=== PATIENT | female | born 1975 | race Caucasian/White ===

== ENCOUNTER 2019-05-26 09:00 | Inpatient (IN) | payer MEDICAID, OTHER ==
[~2019-05-26] VITALS: Ht 160 cm; Wt 79.1 kg
[2019-05-26 10:15] LABS: PH, VENOUS 7.281 pH (7.320-7.420)
[2019-05-26 10:18] LABS: BASOPHILS # (AUTO) 0.06 x10^3/uL (0-0.1); BASOPHILS % (AUTO) 1 % (0-1); EOSINOPHILS # (AUTO) 0.53 x10^3/uL (0-0.4); EOSINOPHILS % (AUTO) 6 % (1-7); LYMPHOCYTES # (AUTO) 1.86 x10^3/uL (1-3.4); LYMPHOCYTES % (AUTO) 19 % (22-44); MD NO; MEAN CORPUSCULAR HGB CONC 32.4 g/dL (32.4-35.8); MEAN CORPUSCULAR VOLUME 86.6 fL (80-100); MEAN PLATELET VOLUME 7.3 fL (7.4-10.4); MONOCYTES # (AUTO) 0.64 x10^3/uL (0.2-0.8); MONOCYTES % (AUTO) 7 % (2-9); NEUTROPHILS # (AUTO) 6.52 x10^3/uL (1.8-6.8); NEUTROPHILS % (AUTO) 68 % (42-75); PLATELET COUNT 431 x10^3/uL (130-400); RED CELL DISTRIBUTION WIDTH 16.5 % (9.6-15.2)
[2019-05-26 10:25] LABS: ALANINE AMINOTRANSFERASE 32 U/L (12-78); ALBUMIN 1.9 g/dL (3.4-5.0); ANION GAP 6 mmol/L (5-15); CALCIUM 8.2 mg/dL (8.5-10.1); CHLORIDE 112 mmol/L (98-107); CREATININE 4.63 mg/dL (0.55-1.02)
[2019-05-26 10:28] LABS: ALKALINE PHOSPHATASE 78 U/L (45-117); BILIRUBIN,TOTAL 0.3 mg/dL (0.2-1.0)
[2019-05-26 10:46] LABS: ACETONE, SERUM Negative (Negative)
--- NOTE | 2019-05-26 10:46 | NUR ---
PT TO RESTROOM WITH SLOW BUT STEADY GAIT.
[2019-05-26] MEDS ORDERED: FUROSEMIDE 40 MG/4 ML IV ONE ×2 (11:00→18:00)
--- NOTE | 2019-05-26 11:26 | NUR ---
TASK RN NOTE: PIV PLACED, PT ON ALL MONITORS. PT A&O, RESPS EVEN AND UNLABORED. PT ABLE TO SPEAK IN FULL SENTENCES WITHOUT DIFFICULTY. CLINICAL SCREEN COMPLETED. VS REASSESSED, REPORT GIVEN TO PRIMARY RN TRISH.
[2019-05-26] MEDS ORDERED: FUROSEMIDE 40 MG/4 ML ONE (11:29)
[2019-05-26] MEDS ORDERED: ALBUMIN HUMAN 25% 100 ML IV ONE (11:30)
[2019-05-26] MEDS ORDERED: SODIUM POLYSTYRENE SULFONATE ORAL SUSP PO ONE (11:30)
[2019-05-26 11:49] LABS: MICROSCOPIC INDICATED
[2019-05-26] MEDS ORDERED: SODIUM POLY SULFONATE UDC 15 GM/60 ML ONE (11:52)
--- NOTE | 2019-05-26 12:05 | NUR ---
PT MEDICATED PER APR. PT RESTING IN [facility] AT THIS TIME;
--- NOTE | 2019-05-26 12:05 | NUR ---
IV PUMPS REQUESTED FROM NON-RESPIRATORY ER. NO PUMPS AVAILABLE ON RESP SIDE AT THIS TIME.
--- NOTE | 2019-05-26 12:36 | NUR ---
PT MEDICATED PER APR. VSS AND UPDATED IN EMR. ADMITTING PHYSICIAN AT FOR PT HISTORY AND ASSESSMENT.
[2019-05-26 12:46] LABS: CULTURE INDICATED? NO
[2019-05-26] MEDS ORDERED: LABETALOL 5MG/ML, 20ML ONE (12:57)
[2019-05-26] MEDS: LABETALOL 5MG/ML, 20ML IVPush PRN (13:12)
--- NOTE | 2019-05-26 13:13 | NUR ---
PT HYPERTENSIVE AND BP CLIMBING. MD AWARE AND ORDERS GIVEN.
--- NOTE | 2019-05-26 14:21 | NUR ---
REPORT TO JONO BELLO.
[2019-05-26 14:46] VITALS: BP 161/99
[2019-05-26] MEDS ORDERED: ASPI-650 PO (14:50)
[2019-05-26] MEDS ORDERED: POTASSIUM SUPPLIMENT PO (15:05)
[2019-05-26] MEDS ORDERED: NPH,100V5 SC (15:05)
[2019-05-26] MEDS ORDERED: FLU VACC QS2019-20 36MOS UP/PF 0.5 ML IM-VACC ONE ×2 (15:30→17:00)
[2019-05-26] MEDS: INSULIN LISPRO 100 UNITS/ML, PEN SQ-INSULIN SCH ×2 (16:00→21:24)
[2019-05-26 16:04] LABS: ANION GAP 6 mmol/L (5-15); CALCIUM 8.4 mg/dL (8.5-10.1); CHLORIDE 113 mmol/L (98-107); CREATININE 4.64 mg/dL (0.55-1.02)
[2019-05-26] MEDS ORDERED: ONDANSETRON 2MG/ML, 2ML ONE (16:16)
[2019-05-26] MEDS: FUROSEMIDE 40 MG/4 ML IV SCH (16:29)
[2019-05-26] MEDS: ERGOCALCIFEROL 50,000 UNIT CAPSULE PO SCH (16:29)
[2019-05-26] MEDS: ONDANSETRON 2MG/ML, 2ML IVPush PRN (16:29)
[2019-05-26] MEDS: HEPARIN 5,000 UNITS/ML, 1ML SQ SCH (17:17)
[2019-05-26] MEDS ORDERED: DEXTROSE 50%, 50ML SYRINGE IVPush ONE (17:30)
[2019-05-26] MEDS ORDERED: SODIUM ZIRCONIUM CYCLOSILICATE 5 GM PO ONE (17:30)
[2019-05-26] MEDS ORDERED: INSULIN REGULAR 100 UNITS/ML, 3ML VIAL IVPush ONE (17:30)
[2019-05-26] MEDS ORDERED: CALCIUM GLUCONATE 4.6 MEQ in SODIUM CHLORIDE 0.9% 100 ML IV ONE (17:30)
[2019-05-26 18:49] VITALS: BP 158/94
[2019-05-27 02:43] VITALS: BP 156/100
[2019-05-27] MEDS: HEPARIN 5,000 UNITS/ML, 1ML SQ SCH ×2 (05:19→18:01)
[2019-05-27 06:19] LABS: BASOPHILS # (AUTO) 0.04 x10^3/uL (0-0.1); BASOPHILS % (AUTO) 1 % (0-1); EOSINOPHILS # (AUTO) 0.47 x10^3/uL (0-0.4); EOSINOPHILS % (AUTO) 6 % (1-7); LYMPHOCYTES # (AUTO) 1.47 x10^3/uL (1-3.4); LYMPHOCYTES % (AUTO) 18 % (22-44); MD NO; MEAN CORPUSCULAR HEMOGLOBIN 28.3 pg (27.0-34.8); MEAN CORPUSCULAR HGB CONC 32.6 g/dL (32.4-35.8); MEAN CORPUSCULAR VOLUME 86.8 fL (80-100); MEAN PLATELET VOLUME 7.4 fL (7.4-10.4); MONOCYTES % (AUTO) 11 % (2-9); NEUTROPHILS # (AUTO) 5.36 x10^3/uL (1.8-6.8); NEUTROPHILS % (AUTO) 65 % (42-75); PLATELET COUNT 347 x10^3/uL (130-400); RED BLOOD COUNT 3.31 x10^6/uL (3.82-5.3); RED CELL DISTRIBUTION WIDTH 16.8 % (9.6-15.2)
[2019-05-27 06:30] LABS: ANION GAP 7 mmol/L (5-15); CALCIUM 8.2 mg/dL (8.5-10.1); CHLORIDE 110 mmol/L (98-107)
[2019-05-27 06:33] LABS: % IRON SATURATION 13 % (20-55); ALANINE AMINOTRANSFERASE 31 U/L (12-78); ALKALINE PHOSPHATASE 65 U/L (45-117); BILIRUBIN,TOTAL 0.3 mg/dL (0.2-1.0); CREATININE 4.64 mg/dL (0.55-1.02); IRON LEVEL 33 mcg/dL (50-170); TOTAL IRON BINDING CAPACITY 249 mcg/dL (250-450); TOTAL PROTEIN 5.5 g/dL (6.4-8.2)
[2019-05-27] MEDS: INSULIN LISPRO 100 UNITS/ML, PEN SQ-INSULIN SCH ×4 (07:00→20:18)
[2019-05-27] MEDS: FUROSEMIDE 40 MG/4 ML IV SCH ×3 (08:30→18:01)
[2019-05-27 08:46] VITALS: BP 165/100
[2019-05-27] MEDS: IRON SUCROSE COMPLEX 100MG/5ML IV SCH (13:08)
[2019-05-27 13:23] VITALS: BP 153/82
[2019-05-27 14:28] LABS: ANA SCREEN NEGATIVE (Negative)
[2019-05-27 20:38] VITALS: BP 169/100
[2019-05-28 01:52] VITALS: BP 171/106
[2019-05-28] MEDS: HEPARIN 5,000 UNITS/ML, 1ML SQ SCH ×2 (04:58→17:20)
[2019-05-28 05:33] LABS: ANION GAP 9 mmol/L (5-15); BASOPHILS # (AUTO) 0.03 x10^3/uL (0-0.1); BASOPHILS % (AUTO) 0 % (0-1); CHLORIDE 109 mmol/L (98-107); EOSINOPHILS # (AUTO) 0.47 x10^3/uL (0-0.4); EOSINOPHILS % (AUTO) 5 % (1-7); LYMPHOCYTES # (AUTO) 1.23 x10^3/uL (1-3.4); LYMPHOCYTES % (AUTO) 14 % (22-44); MD NO; MEAN CORPUSCULAR HEMOGLOBIN 28.3 pg (27.0-34.8); MEAN CORPUSCULAR HGB CONC 32.7 g/dL (32.4-35.8); MEAN CORPUSCULAR VOLUME 86.3 fL (80-100); MEAN PLATELET VOLUME 7.5 fL (7.4-10.4); MONOCYTES # (AUTO) 0.89 x10^3/uL (0.2-0.8); MONOCYTES % (AUTO) 10 % (2-9); NEUTROPHILS # (AUTO) 6.26 x10^3/uL (1.8-6.8); NEUTROPHILS % (AUTO) 71 % (42-75); PLATELET COUNT 321 x10^3/uL (130-400); RED BLOOD COUNT 3.21 x10^6/uL (3.82-5.3); RED CELL DISTRIBUTION WIDTH 16.2 % (9.6-15.2)
[2019-05-28 05:36] LABS: CREATININE 4.59 mg/dL (0.55-1.02)
[2019-05-28 06:44] VITALS: BP 171/108
[2019-05-28] MEDS: INSULIN LISPRO 100 UNITS/ML, PEN SQ-INSULIN SCH ×4 (07:58→19:47)
[2019-05-28] MEDS: METOLAZONE 5 MG TABLET PO SCH (08:33)
[2019-05-28] MEDS: CALCIUM ACETATE 667 MG CAPSULE PO SCH ×2 (11:19→17:20)
[2019-05-28] MEDS: IRON SUCROSE COMPLEX 100MG/5ML IV SCH (11:19)
[2019-05-28] MEDS: FUROSEMIDE 40 MG/4 ML IV SCH ×2 (11:20→17:20)
[2019-05-28 12:01] VITALS: BP 163/96
[2019-05-28] MEDS ORDERED: LIDOCAINE 1%, 10ML ONE (12:39)
[2019-05-28 13:32] VITALS: BP 140/75
[2019-05-28] MEDS: GUAIFENESIN 200 MG TABLET PO PRN (15:02)
[2019-05-28] MEDS: ONDANSETRON 2MG/ML, 2ML IVPush PRN (18:06)
[2019-05-28] MEDS: ACETAMINOPHEN 500 MG TABLET PO PRN (18:34)
[2019-05-28 20:13] VITALS: BP 152/91
[2019-05-29 01:31] VITALS: BP 152/97
[2019-05-29 05:28] LABS: BASOPHILS # (AUTO) 0.04 x10^3/uL (0-0.1); BASOPHILS % (AUTO) 0 % (0-1); EOSINOPHILS # (AUTO) 0.27 x10^3/uL (0-0.4); EOSINOPHILS % (AUTO) 3 % (1-7); LYMPHOCYTES # (AUTO) 1.24 x10^3/uL (1-3.4); LYMPHOCYTES % (AUTO) 12 % (22-44); MD NO; MEAN CORPUSCULAR HEMOGLOBIN 27.8 pg (27.0-34.8); MEAN CORPUSCULAR HGB CONC 32.3 g/dL (32.4-35.8); MEAN CORPUSCULAR VOLUME 86.1 fL (80-100); MEAN PLATELET VOLUME 7.5 fL (7.4-10.4); MONOCYTES # (AUTO) 0.81 x10^3/uL (0.2-0.8); MONOCYTES % (AUTO) 8 % (2-9); NEUTROPHILS # (AUTO) 8.03 x10^3/uL (1.8-6.8); NEUTROPHILS % (AUTO) 77 % (42-75); PLATELET COUNT 350 x10^3/uL (130-400); RED BLOOD COUNT 3.83 x10^6/uL (3.82-5.3); RED CELL DISTRIBUTION WIDTH 16.2 % (9.6-15.2)
[2019-05-29 05:31] LABS: ALBUMIN 1.8 g/dL (3.4-5.0); ANION GAP 8 mmol/L (5-15); CALCIUM 8.3 mg/dL (8.5-10.1); CHLORIDE 108 mmol/L (98-107); CREATININE 4.73 mg/dL (0.55-1.02)
[2019-05-29] MEDS: HEPARIN 5,000 UNITS/ML, 1ML SQ SCH ×3 (05:36→19:20)
[2019-05-29] MEDS: INSULIN LISPRO 100 UNITS/ML, PEN SQ-INSULIN SCH ×4 (07:00→20:17)
[2019-05-29] MEDS ORDERED: LIDOCAINE 1%, 10ML ONE (07:49)
[2019-05-29] MEDS: CALCIUM ACETATE 667 MG CAPSULE PO SCH ×3 (08:07→17:01)
[2019-05-29] MEDS: FUROSEMIDE 40 MG/4 ML IV SCH ×3 (08:07→17:02)
[2019-05-29] MEDS: METOLAZONE 5 MG TABLET PO SCH (08:07)
[2019-05-29 08:15] VITALS: BP 160/98
[2019-05-29] MEDS: IRON SUCROSE COMPLEX 100MG/5ML IV SCH (10:29)
[2019-05-29] MEDS: ACETAMINOPHEN 500 MG TABLET PO PRN (10:29)
[2019-05-29] MEDS: GUAIFENESIN 200 MG TABLET PO PRN (12:33)
[2019-05-29 14:54] VITALS: BP 147/95
[2019-05-29 16:34] LABS: INTERNATIONAL NORMALIZED RATIO 0.99 (0.93-1.1); PROTHROMBIN TIME 10.5 Seconds (9.6-11.5)
[2019-05-29 20:32] VITALS: BP 159/62
[2019-05-30 00:59] VITALS: BP 156/90
[2019-05-30 07:45] VITALS: BP 154/84
[2019-05-30] MEDS: CALCIUM ACETATE 667 MG CAPSULE PO SCH ×3 (08:00→17:23)
[2019-05-30] MEDS: INSULIN LISPRO 100 UNITS/ML, PEN SQ-INSULIN SCH ×4 (08:02→20:37)
[2019-05-30] MEDS: FUROSEMIDE 40 MG/4 ML IV SCH ×3 (08:11→17:23)
[2019-05-30] MEDS: METOLAZONE 5 MG TABLET PO SCH (08:11)
[2019-05-30] MEDS: LABETALOL 5MG/ML, 20ML IVPush PRN (08:21)
[2019-05-30 08:29] LABS: ANION GAP 7 mmol/L (5-15); CALCIUM 8.4 mg/dL (8.5-10.1); CHLORIDE 108 mmol/L (98-107); CREATININE 4.99 mg/dL (0.55-1.02)
[2019-05-30 09:17] VITALS: BP 133/83
[2019-05-30] MEDS: IRON SUCROSE COMPLEX 100MG/5ML IV SCH (09:53)
[2019-05-30] MEDS ORDERED: LIDOCAINE 1%, 20ML ONE (10:06)
[2019-05-30] MEDS ORDERED: NALOXONE 1 MG/ML, 2ML ONE (10:44)
[2019-05-30] MEDS ORDERED: FENTANYL PF 100 MCG/2ML ONE (10:44)
[2019-05-30] MEDS ORDERED: MIDAZOLAM 1 MG/ML, 5ML ONE (10:44)
[2019-05-30] MEDS ORDERED: FLUMAZENIL 0.1 MG/1 ML, 5ML ONE (10:44)
[2019-05-30] MEDS ORDERED: CEFAZOLIN PMX 1GM/50ML 50 ML ONE (10:46)
[2019-05-30 14:00] VITALS: BP 146/82
[2019-05-30 16:12] VITALS: BP 152/92
[2019-05-30 19:30] VITALS: BP 152/78
[2019-05-30] MEDS: HEPARIN 5,000 UNITS/ML, 1ML SQ SCH (20:42)
[2019-05-31 01:26] VITALS: BP 160/91
[2019-05-31 04:53] LABS: ALBUMIN 1.5 g/dL (3.4-5.0); ANION GAP 8 mmol/L (5-15); CALCIUM 8.2 mg/dL (8.5-10.1); CHLORIDE 106 mmol/L (98-107)
[2019-05-31 05:04] LABS: BASOPHILS # (AUTO) 0.04 x10^3/uL (0-0.1); BASOPHILS % (AUTO) 0 % (0-1); EOSINOPHILS # (AUTO) 0.49 x10^3/uL (0-0.4); EOSINOPHILS % (AUTO) 5 % (1-7); LYMPHOCYTES # (AUTO) 1.14 x10^3/uL (1-3.4); LYMPHOCYTES % (AUTO) 11 % (22-44); MD NO; MEAN CORPUSCULAR HEMOGLOBIN 28.7 pg (27.0-34.8); MEAN CORPUSCULAR HGB CONC 33.3 g/dL (32.4-35.8); MEAN CORPUSCULAR VOLUME 86.1 fL (80-100); MEAN PLATELET VOLUME 7.9 fL (7.4-10.4); MONOCYTES # (AUTO) 1.09 x10^3/uL (0.2-0.8); MONOCYTES % (AUTO) 10 % (2-9); NEUTROPHILS # (AUTO) 7.86 x10^3/uL (1.8-6.8); NEUTROPHILS % (AUTO) 74 % (42-75); PLATELET COUNT 318 x10^3/uL (130-400); RED BLOOD COUNT 3.17 x10^6/uL (3.82-5.3); RED CELL DISTRIBUTION WIDTH 16.8 % (9.6-15.2)
[2019-05-31] MEDS: INSULIN LISPRO 100 UNITS/ML, PEN SQ-INSULIN SCH ×4 (07:00→20:35)
[2019-05-31] MEDS: METOLAZONE 5 MG TABLET PO SCH (07:36)
[2019-05-31 07:38] VITALS: BP 162/94
[2019-05-31] MEDS: CALCIUM ACETATE 667 MG CAPSULE PO SCH ×3 (08:00→17:17)
[2019-05-31] MEDS: IRON SUCROSE COMPLEX 100MG/5ML IV SCH (08:01)
[2019-05-31] MEDS: ACETAMINOPHEN 500 MG TABLET PO PRN (08:01)
[2019-05-31] MEDS: HEPARIN 5,000 UNITS/ML, 1ML SQ SCH ×2 (08:01→20:43)
[2019-05-31] MEDS: FUROSEMIDE 40 MG/4 ML IV SCH ×3 (08:01→17:17)
[2019-05-31 12:48] VITALS: BP 157/84
[2019-05-31 20:30] VITALS: BP 178/96
[2019-06-01 01:02] VITALS: BP 153/88
[2019-06-01] MEDS: GUAIFENESIN 200 MG TABLET PO PRN (04:36)
[2019-06-01 06:16] LABS: ANION GAP 10 mmol/L (5-15); CALCIUM 8.3 mg/dL (8.5-10.1); CHLORIDE 102 mmol/L (98-107); CREATININE 5.04 mg/dL (0.55-1.02)
[2019-06-01] MEDS: INSULIN LISPRO 100 UNITS/ML, PEN SQ-INSULIN SCH ×4 (07:00→21:00)
[2019-06-01 07:51] VITALS: BP 164/92
[2019-06-01] MEDS: CARVEDILOL 6.25 MG TABLET PO SCH ×3 (08:06→21:27)
[2019-06-01] MEDS: CALCIUM ACETATE 667 MG CAPSULE PO SCH ×3 (08:06→17:21)
[2019-06-01] MEDS: METOLAZONE 5 MG TABLET PO SCH (08:07)
[2019-06-01] MEDS: FUROSEMIDE 40 MG/4 ML IV SCH ×3 (09:32→17:21)
[2019-06-01] MEDS: HEPARIN 5,000 UNITS/ML, 1ML SQ SCH ×2 (09:32→21:26)
[2019-06-01 13:35] VITALS: BP 160/90
[2019-06-01 17:00] VITALS: BP 154/89
[2019-06-01 17:20] VITALS: BP 150/89
[2019-06-01 21:28] VITALS: BP 159/89
[2019-06-02 00:50] VITALS: BP 166/95
[2019-06-02 05:43] LABS: CHLORIDE 101 mmol/L (98-107)
[2019-06-02 05:48] LABS: ALBUMIN 1.6 g/dL (3.4-5.0); ANION GAP 8 mmol/L (5-15); CALCIUM 8.2 mg/dL (8.5-10.1); CREATININE 4.36 mg/dL (0.55-1.02)
[2019-06-02 05:51] VITALS: BP 161/98
[2019-06-02] MEDS: CARVEDILOL 6.25 MG TABLET PO SCH (05:54)
[2019-06-02 06:11] VITALS: BP 153/94
[2019-06-02] MEDS: INSULIN LISPRO 100 UNITS/ML, PEN SQ-INSULIN SCH ×4 (07:47→20:43)
[2019-06-02] MEDS: METOLAZONE 5 MG TABLET PO SCH (07:47)
[2019-06-02] MEDS: CARVEDILOL 12.5 MG TABLET PO SCH ×2 (08:33→20:39)
[2019-06-02] MEDS: HEPARIN 5,000 UNITS/ML, 1ML SQ SCH ×2 (08:33→20:42)
[2019-06-02] MEDS: CALCIUM ACETATE 667 MG CAPSULE PO SCH ×3 (08:33→16:49)
[2019-06-02] MEDS: FUROSEMIDE 40 MG/4 ML IV SCH ×4 (08:34→20:38)
[2019-06-02 14:00] VITALS: BP 148/85
[2019-06-02] MEDS: ERGOCALCIFEROL 50,000 UNIT CAPSULE PO SCH (16:49)
[2019-06-02 19:38] VITALS: BP 154/83
[2019-06-03 03:27] VITALS: BP 143/86
[2019-06-03 06:21] LABS: ANION GAP 7 mmol/L (5-15); CALCIUM 8.1 mg/dL (8.5-10.1); CHLORIDE 101 mmol/L (98-107)
[2019-06-03 06:24] LABS: CREATININE 3.78 mg/dL (0.55-1.02)
[2019-06-03 06:30] VITALS: BP 143/88
[2019-06-03] MEDS: INSULIN LISPRO 100 UNITS/ML, PEN SQ-INSULIN SCH ×4 (07:00→21:14)
[2019-06-03] MEDS: METOLAZONE 5 MG TABLET PO SCH (07:42)
[2019-06-03] MEDS: FUROSEMIDE 40 MG/4 ML IV SCH (08:32)
[2019-06-03] MEDS: HEPARIN 5,000 UNITS/ML, 1ML SQ SCH ×2 (08:32→21:20)
[2019-06-03] MEDS: CALCIUM ACETATE 667 MG CAPSULE PO SCH ×3 (08:33→17:04)
[2019-06-03] MEDS: CARVEDILOL 12.5 MG TABLET PO SCH ×2 (08:33→21:20)
[2019-06-03 16:00] VITALS: BP 121/77
[2019-06-03] MEDS: FUROSEMIDE 80 MG TABLET PO SCH (16:03)
[2019-06-03 20:18] VITALS: BP 131/77
[2019-06-04 00:01] VITALS: BP 115/74
[2019-06-04 06:24] LABS: ANION GAP 6 mmol/L (5-15); CALCIUM 7.9 mg/dL (8.5-10.1); CHLORIDE 101 mmol/L (98-107); CREATININE 3.63 mg/dL (0.55-1.02)
[2019-06-04] MEDS: INSULIN LISPRO 100 UNITS/ML, PEN SQ-INSULIN SCH ×3 (07:00→16:10)
[2019-06-04 07:05] VITALS: BP 145/87
[2019-06-04] MEDS: CALCIUM ACETATE 667 MG CAPSULE PO SCH ×3 (08:00→17:49)
[2019-06-04] MEDS: CARVEDILOL 12.5 MG TABLET PO SCH (12:30)
[2019-06-04] MEDS: FUROSEMIDE 80 MG TABLET PO SCH ×2 (12:30→17:00)
[2019-06-04] MEDS: HEPARIN 5,000 UNITS/ML, 1ML SQ SCH (12:30)
[2019-06-04 12:59] VITALS: BP 142/86
[2019-06-04] MEDS ORDERED: LOSA50TA2 PO (13:13)
[2019-06-04] MEDS ORDERED: CARV12.52 PO (13:13)
[2019-06-04] MEDS ORDERED: FURO80TA3 PO (13:13)
[2019-06-04] MEDS ORDERED: CALC667C PO (13:13)
[2019-06-04] MEDS ORDERED: METO5TAB5 PO (13:13)
[2019-06-04] MEDS ORDERED: ERGO500017 PO (13:13)
[2019-06-04] MEDS ORDERED: LOSARTAN 50MG TABLET PO SCH (21:00)
[2019-06-05] MEDS ORDERED: METOLAZONE 5 MG TABLET PO SCH (07:30)
== END 2019-06-04 19:11 | disposition home or self-care (01) | DRG 673 ==
LOC: ED 09:34 → EDIP 11:13 → 4WST 14:30 → 4NW 05-28 12:43
PROVIDERS: ADMIT Internal Medicine; ATTEND Hospitalist
PROC: 0W9B3ZZ Drainage of Left Pleural Cavity, Percutaneous Approach (ICD-10-PCS; principal; 2019-05-28)
PROC: 0W993ZZ Drainage of Right Pleural Cavity, Percutaneous Approach (ICD-10-PCS; 2019-05-29)
PROC: 0JH63XZ Insertion of Tunneled Vascular Access Device into Chest Subcutaneous Tissue and Fascia, Percutaneous Approach (ICD-10-PCS; 2019-05-30)
PROC: 02HV33Z Insertion of Infusion Device into Superior Vena Cava, Percutaneous Approach (ICD-10-PCS; 2019-05-30)
PROC: B548ZZA Ultrasonography of Superior Vena Cava, Guidance (ICD-10-PCS; 2019-05-30)
PROC: B5181ZA Fluoroscopy of Superior Vena Cava using Low Osmolar Contrast, Guidance (ICD-10-PCS; 2019-05-30)
PROC: 0TB13ZX Excision of Left Kidney, Percutaneous Approach, Diagnostic (ICD-10-PCS; 2019-05-30)
PROC: 5A1D70Z Performance of Urinary Filtration, Intermittent, Less than 6 Hours Per Day (ICD-10-PCS; 2019-06-01)
PROC: 5A1D70Z Performance of Urinary Filtration, Intermittent, Less than 6 Hours Per Day (ICD-10-PCS; 2019-06-03)
PROC: 5A1D70Z Performance of Urinary Filtration, Intermittent, Less than 6 Hours Per Day (ICD-10-PCS; 2019-06-04)
DX: N17.9 Acute kidney failure, unspecified (principal); J96.01 Acute respiratory failure with hypoxia; I13.2 Hypertensive heart and chronic kidney disease with heart failure and with stage 5 chronic kidney disease, or end stage renal disease; E87.2 Acidosis; I82.612 Acute embolism and thrombosis of superficial veins of left upper extremity; J90 Pleural effusion, not elsewhere classified; I50.30 Unspecified diastolic (congestive) heart failure; N18.6 End stage renal disease; N04.9 Nephrotic syndrome with unspecified morphologic changes; N25.81 Secondary hyperparathyroidism of renal origin; D63.1 Anemia in chronic kidney disease; E11.22 Type 2 diabetes mellitus with diabetic chronic kidney disease; E55.9 Vitamin D deficiency, unspecified; E87.5 Hyperkalemia; E88.09 Other disorders of plasma-protein metabolism, not elsewhere classified; I07.1 Rheumatic tricuspid insufficiency; I16.0 Hypertensive urgency; I27.29 Other secondary pulmonary hypertension; I50.810 Right heart failure, unspecified; D63.8 Anemia in other chronic diseases classified elsewhere; I80.8 Phlebitis and thrombophlebitis of other sites; M12.9 Arthropathy, unspecified; N25.0 Renal osteodystrophy; Z79.4 Long term (current) use of insulin; Z87.891 Personal history of nicotine dependence; Z99.2 Dependence on renal dialysis
CPT/HCPCS: 32555; 36415; 36600; 77001; 88348; 88350; 96374; 96375; 99285; J3490; 36558; 50200; 71045; 71250; 76770; 76937; 77012; 78582; 80048; 80053; 80069; 81001; 82010; 82040; 82306; 82570; 82728; 82803; 82962; 83036; 83540; 83550; 83735; 83880; 83970; 84100; 84156; 84703; 85025; 85610; 86038; 86480; 86705; 86706; 86803; 86850; 86900; 87340; 88300; 88305; 88313; 88346; 90686; 90935; 93005; 93306; 93970; 99156; 99157; G0378; J0610; J0690; J1644; J1756; J1815; J1940; J2250; J2405; J3010; P9047; A9540; A9558; C1750; C9898; J1642; J2310

== ENCOUNTER 2020-11-01 09:40 | Emergency (ER) | payer MEDICAID, MEDICARE ==
[~2020-11-01] VITALS: Ht 160 cm; Wt 64.0 kg
[~2020-11-01 09:40] MED LIST: ASPI325T20 PO; CALC667C PO; CARV12.52 PO; ERGO500017 PO; FURO80TA3 PO; LOSA50TA2 PO; METO5TAB5 PO; NPH,100V5 SC; POTASSIUM SUPPLIMENT PO
[2020-11-01 10:21] LABS: BASOPHILS % (AUTO) 1 % (0-1); EOSINOPHILS % (AUTO) 3 % (1-7); LYMPHOCYTES % (AUTO) 16 % (22-44); MEAN PLATELET VOLUME 7.3 fL (7.4-10.4); MONOCYTES % (AUTO) 7 % (2-9); NEUTROPHILS % (AUTO) 73 % (42-75); PLATELET COUNT 376 x10^3/uL (130-400); RED BLOOD COUNT 3.65 x10^6/uL (3.82-5.3); RED CELL DISTRIBUTION WIDTH 12.8 % (9.6-15.2)
[2020-11-01 10:24] LABS: ALANINE AMINOTRANSFERASE 36 U/L (12-78); ALBUMIN 2.9 g/dL (3.4-5.0); ANION GAP 9 mmol/L (5-15); CALCIUM 8.4 mg/dL (8.5-10.1); CHLORIDE 101 mmol/L (98-107)
[2020-11-01 10:29] LABS: ALKALINE PHOSPHATASE 95 U/L (45-117); BILIRUBIN,TOTAL 0.3 mg/dL (0.2-1.0); TOTAL PROTEIN 7.4 g/dL (6.4-8.2)
--- NOTE | 2020-11-01 11:01 | NUR ---
FLUID PULLED FROM DIALYSIS CATHETER AND WALKED TO LAB. NAD NOTED AT THIS TIME. PT REPORTS INTERMITTENT SHARP PAIN, CURRENTLY DULL PAIN. AWAITING LAB RESULTS REPORT TO JONO BLANCO AND JONO PARSONS.
--- NOTE | 2020-11-01 11:25 | NUR ---
ED nursing hand-off report received from JONO Marin
[2020-11-01 12:46] VITALS: BP 162/81
== END 2020-11-01 12:51 | disposition home or self-care (01) ==
LOC: ED 09:41
DX: K85.00 Idiopathic acute pancreatitis without necrosis or infection (principal); E11.22 Type 2 diabetes mellitus with diabetic chronic kidney disease; I12.9 Hypertensive chronic kidney disease with stage 1 through stage 4 chronic kidney disease, or unspecified chronic kidney disease; N18.9 Chronic kidney disease, unspecified; R11.2 Nausea with vomiting, unspecified; Z79.4 Long term (current) use of insulin; Z99.2 Dependence on renal dialysis
CPT/HCPCS: 36415; 80053; 82042; 83605; 83615; 83690; 84703; 85025; 87040; 87070; 87205; 89051; 93005; 99284